=== PATIENT | male | born 1970 | race Caucasian/White ===

== ENCOUNTER 2019-10-08 08:38 | Day surgery (SDC) | payer BC ==
[~2019-10-08] VITALS: Ht 180.3 cm; Wt 80.0 kg
[2019-10-08] VITALS (7 sets, daily range): BP systolic 119–137; BP diastolic 76–84
[~2019-10-08 08:38] MED LIST: LR 1000ml 1,000 ML IVLG SCH; NKM
[2019-10-08] MEDS ORDERED: Propofol 200mg/20ml IV ONE (10:00)
[2019-10-08] MEDS ORDERED: LR 1000ml ONE (10:00)
[2019-10-08] MEDS ORDERED: Lidocaine 1% MPF 10mg/ml 5ml ONE (10:00)
[2019-10-08] MEDS ORDERED: LR 1000ml 1,000 ML IVLG SCH (10:11)
--- NOTE | 2019-10-08 10:13 | Anethesia Preoperative Eval ---
Anesthesia Pre-op PMH/ROS General Date of Evaluation: Oct 08, 2019 Time of Evaluation: 09:58 Anesthesiologist: Florence ASA Score: ASA 1 Mallampati Score Class I : Soft palate, uvula, fauces, pillars visible Class II: Soft palate, uvula, fauces visible Class III: Soft palate, base of uvula visible Class IV: Only hard plate visible Mallampati Classification: Class II Surgeon: Raymond Diagnosis: Iron Deficiency Surgical Procedure: Colonoscopy Anesthesia History: none Family History: no anesthesia problems Allergies: Coded Allergies: No Known Allergies (Unverified , 07/22/19) Medications: see eMAR Patient NPO?: Yes Past Medical History Gastrointestinal/Genitourinary: Reports: GERD PSxH Narrative: Appendectomy Anesthesia Pre-op Phys. Exam Physician Exam Last Vital Signs Date Time Temp Pulse Resp B/P (MAP) Pulse Ox O2 Delivery O2 Flow Rate FiO2 10/08/19 09:13 Room Air 10/08/19 09:09 97.5 76 18 137/76 98 Constitutional: NAD Neurologic: CN 2-12 intact Cardiovascular: RRR Respiratory: CTA Gastrointestinal: S/NT/ND Airway Exam Mallampati Score: Class II MO: full ROM: full Teeth: intact Anesthesia Pre-op A/P Risk Assessment & Plan Assessment: ASA1 Plan: GA Status Change Before Surgery: Ruben Brewer MD Oct 08, 2019 10:13
[2019-10-08] MEDS ORDERED: Atropine Sulfate 0.4mg/ml inj IVP PRN (10:15)
[2019-10-08] MEDS ORDERED: Hydromorphone 0.5mg/0.5ml inj IVP PRN (10:15)
[2019-10-08] MEDS ORDERED: Metoclopramide 10mg/2ml Inj IVP PRN (10:15)
[2019-10-08] MEDS ORDERED: Midazolam 2mg/2ml Inj IVP PRN (10:15)
[2019-10-08] MEDS ORDERED: Labetalol 5mg/ml 20ml vial IV PRN (10:15)
[2019-10-08] MEDS ORDERED: Ketorolac 30mg Inj IV PRN ×2 (10:15)
[2019-10-08] MEDS ORDERED: HYDROcodone/Acetamin 7.5/325 tab ORAL PRN (10:15)
[2019-10-08] MEDS ORDERED: oxyCODONE HCL/Acetaminophen 5/325mg ORAL PRN (10:15)
[2019-10-08] MEDS ORDERED: HYDROcodone/Acetamin 5/325 tab ORAL PRN (10:15)
[2019-10-08] MEDS ORDERED: Meperidine 25mg/0.5ml Inj (FOR RIGORS ONLY) IV PRN (10:15)
[2019-10-08] MEDS ORDERED: DiphenhydrAMINE 50mg/ml Inj IVP PRN (10:15)
[2019-10-08] MEDS ORDERED: fentaNYL 100 mcg/2 mL IV PRN (10:15)
[2019-10-08] MEDS ORDERED: LORazepam Inj 2mg/ml 1ml IV PRN (10:15)
--- NOTE | 2019-10-08 10:15 | Short Stay Surgery H&P ---
History of Present Illness History of Present Illness Chief Complaint see attached H&P HPI Moses Goff is a 48 year old male who was admitted on for Iron Deficiency Patient History Allergies: Coded Allergies: No Known Allergies (Unverified , 07/22/19) Medication History Scheduled No Known Medications* (NKM - No Known Medications*), ., (Reported) Physical Exam Vital Signs Last Vital Signs Date Time Temp Pulse Resp B/P (MAP) Pulse Ox O2 Delivery O2 Flow Rate FiO2 10/08/19 09:13 Room Air 10/08/19 09:09 97.5 76 18 137/76 98 Plan Attestation Are the patient's medical conditions optimized for surgery? Carlo Andrade MD Oct 08, 2019 10:15
--- NOTE | 2019-10-08 10:16 | Pre-Procedure Note/Attestation ---
Pre-Procedure Note/Attestation Complete Prior to Procedure Planned Procedure: not applicable Procedure Narrative: colon Indications for Procedure Pre-Operative Diagnosis: Iron deficiency Attestation I attest that I discussed the nature of the procedure; its benefits; risks and complications; and alternatives (and the risks and benefits of such alternatives ), prior to the procedure, with the patient (or the patient's legal workforce services representative). I attest that, if there was a reasonable possibility of needing a blood transfusion, the patient (or the patient's legal workforce services representative) was given the [facility] standardized written summary, pursuant to the Sonny [place] Blood Safety Act ([place] Health and Safety Code # 1645, as amended). I attest that I re-evaluated the patient just prior to the surgery and that there has been no change in the patient's H&P, except as documented below: Carlo Andrade MD Oct 08, 2019 10:16
--- NOTE | 2019-10-08 10:25 | Immediate Post-Op Evaluation ---
Immediate Post-Op Evalulation Immediate Post-Op Evalulation Procedure: Colonoscopy Date of Evaluation: Oct 08, 2019 Time of Evaluation: 11:20 IV Fluids: 700 LR Blood Products: 0 Estimated Blood Loss: 2 Urinary Output: 0 Blood Pressure Systolic: 126 Blood Pressure Diastolic: 81 Pulse Rate: 72 Respiratory Rate: 16 O2 Sat by Pulse Oximetry: 99 Temperature (Fahrenheit): 97.3 Pain Score (1-10): 1 Nausea: No Vomiting: No Complications 0 Patient Status: awake, reacts, patent, none Hydration Status: adequate Ruben Henriquez MD Oct 08, 2019 10:25
--- NOTE | 2019-10-08 10:26 | 48 Hour Post Anesthesia Eval ---
Post Anesthesia Evaluation Procedure: Colonoscopy Date of Evaluation: Oct 08, 2019 Time of Evaluation: 13:24 Blood Pressure Systolic: 123 0: 72 Pulse Rate: 71 Respiratory Rate: 18 Temperature (Fahrenheit): 98.2 O2 Sat by Pulse Oximetry: 100 Airway: patent Nausea: No Vomiting: No Pain Intensity: 1 Hydration Status: adequate Cardiopulmonary Status: Stable Mental Status/LOC: patient returned to baseline Follow-up Care/Observations: 0 Post-Anesthesia Complications: 0 Follow-up care needed: ready to discharge Ruben Henriquez MD Oct 08, 2019 10:26
--- NOTE | 2019-10-08 10:58 | Endoscopy Procedure Note ---
Endoscopy Procedure Note General Indication for Procedure: Fe deficiency Procedures Performed: colonoscopy Operative Findings/Diagnosis: normal TI - bx, appendix polyp - bx, RND (L) colon bx, mild rectal erythema Specimen: yes Pt Tolerated Procedure Well: Yes Estimated Blood Loss: none Anesthesia Anesthesiologist: Dr Henriquez Anesthesia: MAC Medications Medication Given: see anesthesia record Inserted Devices Implant(s) used?: No GI Core Measures 50 yrs or older w/o bx or poly: Not Applicable 10yrs. F/U recommended: Not Applicable Carlo Andrade MD Oct 08, 2019 10:58
--- NOTE | 2019-10-08 11:01 | Brief Operative Note ---
Immediate Post Operative Note Operative Note Chief Complaint: iron deficiency Pre-op Diagnosis: Iron deficiency Procedure: colon bx Post-op Diagnosis: appendix polyp, rectal erythema normal TI - bx, appendix polyp - bx, RND (L) colon bx, mild rectal erythema Surgeon: debbie Anesthesiologist: Florence Anesthesia: MAC Specimen: yes Complications: none Condition: stable Fluids: per anesthesia Estimated Blood Loss: none Drains: none Implant(s) used?: No Carlo Andrade MD Oct 08, 2019 11:01
--- NOTE | 2019-10-08 22:45 | Operative Note - Dictated ---
DATE OF OPERATION: 10/08/2019 GASTROENTEROLOGY PROCEDURE REPORT SURGEON: Carlo Andrade M.D. ANESTHESIA: Please see the separate anesthesiologist notes for details. PRE-ENDOSCOPIC DIAGNOSIS: Iron deficiency. POST-ENDOSCOPIC DIAGNOSES: 1. Nodule at the site of the appendiceal orifice, status post biopsy. 2. Mild rectal erythema of doubtful significance, status post biopsy. 3. Status post random biopsies of normal terminal ileum and left colon. DESCRIPTION OF PROCEDURE: The procedure, its risks, indications, alternatives, and possible complications were explained to the patient and informed consent was obtained. The patient was then sedated in the left lateral decubitus position and a rectal exam was done, which was unremarkable. The colonoscope was then introduced in the rectum and advanced to the terminal ileum for about 10 cm. The terminal ileal mucosa appeared normal and that were biopsied. At the location of where the appendiceal orifice will be expected, there was a smooth nodule measuring approximately 13 mm. The surface mucosa appeared relatively normal. With a biopsy forceps, this nodule was pushed, but it did not appear to be amenable to inversion. Biopsies were sent to pathology for review. The remainder of the colonoscopic examination was remarkable for mild rectal erythema of doubtful significance. Random biopsies of the normal left colon and also separately the rectum were sent to pathology for review. The colonoscope was removed. The patient was sent to recovery in good condition. COMPLICATIONS: None. ASSESSMENT: The nodule like deformity of the appendiceal orifice maybe postsurgical phenomena since the patient has had appendectomy. Biopsies will be evaluated to rule out any unusual tissue type. The rectal erythema may be due to preparation artifact. The biopsies will be evaluated to rule out any microscopic changes. The same will be done for left colonic biopsies. RECOMMENDATIONS: 1. Follow up biopsy results. 2. Outpatient followup. Carlo Andrade M.D. DR: HOMERO JOB#: [id number] CC: DESTINEY
== END 2019-10-08 12:25 | disposition home or self-care (01) ==
LOC: GAS 08:38
DX: E61.1 Iron deficiency (principal); Z90.89 Acquired absence of other organs; K62.89 Other specified diseases of anus and rectum
CPT/HCPCS: 45380; J2250; J2704; J7120; 94003; 94150